=== PATIENT | female | born 1985 | race Caucasian/White ===

== ENCOUNTER 2016-11-16 15:19 | Inpatient (IN) ==
[2016-11-16] MEDS ORDERED: *HR* HYDROmorphone (PF) 1 MG/ML SYRINGE IVP ONE ×2 (15:58→17:37)
[2016-11-16] MEDS ORDERED: 0.9 % Sodium Chloride 1,000 ML IVC ONE (15:58)
[2016-11-16] MEDS ORDERED: Ondansetron 4 MG/2 ML VIAL IVP ONE (15:58)
[2016-11-16 16:02] LABS: Basophils % 0.2 %; Eosinophils % 0.1 %; Hematocrit 42.6 % (35.3-44.9); Hemoglobin 13.9 g/dL (11.5-15.4); Immature Granulocytes % 0.3 % (0-4); Immature Platelets 2.7 % (1.1-6.1); Lymphocytes # 2.6 K/mcL (0.6-4.6); Lymphocytes % 28.7 %; Mean Corpuscular HGB Conc 32.6 g/dL (31.6-35.5); Mean Corpuscular Hemoglobin 30.2 pg (28.0-33.3); Mean Corpuscular Volume 92.4 fL (83.0-100.0); Mean Platelet Volume 9.7 fL (9.4-12.4); Monocytes # 0.5 K/mcL (0.0-1.3); Monocytes % 5.2 %; Neutrophils # 5.8 K/mcL (1.6-8.9); Platelet Count 305 K/mcL (140-400); Red Blood Count 4.61 M/mcL (3.82-4.97); Red Cell Distribution Width 13.5 % (11.5-14.5); Segmented Neutrophils % 65.5 %
[2016-11-16 16:17] LABS: Alanine Aminotransferase 10 Units/L (0-55); Albumin 4.3 g/dL (3.5-5.0); Albumin/Globulin Ratio 1.3 (1.1-2.2); Alkaline Phosphatase 55 Units/L (38-126); Amylase 45 Units/L (25-125); Aspartate Amino Transferase 11 Units/L (5-34); BUN/Creatinine Ratio 10 (6-26); Bilirubin,Direct 0.2 mg/dL (0.0-0.5); Bilirubin,Indirect 0.3 mg/dL (0.0-1.2); Bilirubin,Total 0.5 mg/dL (0.2-1.2); Blood Urea Nitrogen 8 mg/dL (7-20); Calcium 9.7 mg/dL (8.6-10.8); Carbon Dioxide 24 mEq/L (19-29); Chloride 107 mEq/L (98-109); Globulin 3.2 g/dL (2.4-3.5); Glucose 93 mg/dL (70-99); Lipase 10 Units/L (8-78); Osmolality,Calculated 290 (280-300); Potassium 4.1 mEq/L (3.5-4.5); Sodium 141 mEq/L (136-145); Total Protein 7.5 g/dL (6.0-8.3); eGFR For African Americans > 60 (> 60); eGFR For Non-African Americans > 60 (> 60)
[2016-11-16 16:35] LABS: Bilirubin,Urine Negative (Negative); Blood,Urine Negative (Negative); Clarity,Urine Clear (Clear); Color,Urine Yellow (Yellow); Glucose,Urine (UA) Normal (Normal); Ketones,Urine Trace mg/dL (Negative); Leukocyte Esterase,Urine Negative (Negative); Nitrite,Urine Negative (Negative); PH,Urine 7.5 pH Units (5.0-8.0); Protein,Urine Trace mg/dL (Neg-Trace); Specific Gravity,Urine 1.029 (1.010-1.025); Urobilinogen,Urine Normal (Normal)
[2016-11-16 16:38] LABS: Bacteria,Urine Few per hpf (None-Few); Hyaline Casts,Urine None Seen per lpf (None-Few); RBC,Urine 0-3 per hpf (0-3); Squamous Epithelial Cell,Urine Many per lpf (None-Few)
[2016-11-16] MEDS ORDERED: Vancomycin Oral Soln 250 MG/2.5 ML UDC PO STA (18:39)
[2016-11-16] MEDS ORDERED: *HR* LORazepam 2 MG/ML VIAL IVP ONE (18:43)
[2016-11-16] MEDS ORDERED: MetroNIDAZOLE 500 MG/100 ML 500 MG/100 ML BAG IVPB ONE (18:45)
--- NOTE | 2016-11-16 18:46 | Emergency Department Note ---
Disposition Clinical Impression: C. difficile diarrhea Disposition: Admitted As Inpatient Referrals: NONE,PCP [Primary Care Provider] - Forms: Work/School Release, ED Satisfaction Letter Abdominal Pain HPI - General Chief Complaint: ED Abdominal Pain Stated Complaint: ABD PAIN Time Seen by Provider: 11/16/16 15:21 Source: patient Mode of arrival: ambulatory Limitations: no limitations Nursing Notes Reviewed: Yes Vital Signs Reviewed: Yes - History of Present Illness Pt Subjective Complaint: abdominal pain Onset (ago): day(s) (5) Consistency: constant Location: diffuse Quality: cramping, stabbing Improves with: nothing Worsens with: nothing Context: history of similar episodes (She was diagnosed C. difficile toxin be on November 14 at [facility] she was unable to get outpatient vancomycin was referred here by [facility] for inpatient status) Associated symptoms: Reports: nausea, vomiting, diarrhea Treatments prior to arrival: none - Related Data Home Medications Medication Instructions Recorded Confirmed Hyoscyamine SL [Levsin Sl] 0.125 mg SL QID 10/29/15 02/15/16 Ondansetron HCl [Zofran] 8 mg PO 3-4XD PRN 10/29/15 02/15/16 Amoxicillin [Amoxil] 500 mg PO BID 02/15/16 02/15/16 Hydrocodone/Acetaminophen [Gibson 1 - 2 each PO Q4-6H PRN 02/15/16 02/15/16 10-325 Tablet] SUMAtriptan succinate [Imitrex] 50 mg PO Q2H PRN 02/15/16 02/15/16 Previous Rx's Medication Instructions Recorded Buspirone HCl [Buspar] 15 mg PO TID #90 tablet 02/19/16 Doxepin [Sinequan] 50 mg PO HS #60 capsule 02/19/16 FLUoxetine HCl [Sarafem] 20 mg PO BID #60 tablet 02/19/16 diazePAM [Valium] 2 mg PO QID PRN #60 tablet 02/19/16 Allergies Allergy/AdvReac Type Severity Reaction Status Date / Time promethazine [From Phenergan] AdvReac Gastrointestinal Verified 10/29/15 12:22 Upset All systems ED: reviewed and negative except as stated. Constitutional: Denies: fever, chills Gastrointestinal: Reports: abdominal pain, nausea, vomiting. Denies: hematemesis, melena, hematochezia Abdominal Pain PMH - Past Medical History Medical history: Reports: fibromyalgia, migraine, other Female Surgical History: Reports: cholecystectomy Psychiatric history: Reports: anxiety, depression, PTSD - Social History Smoking status: Current every day smoker Alcohol use: Reports: rarely Drug use: Reports: marijuana Physical Exam - General Limitations: no limitations General appearance: alert, other (H in obvious pain) - Head Head exam: atraumatic, normocephalic, normal inspection - Eye Eye exam: Present: normal appearance, PERRL, EOMI - Expanded Eye Exam Pupils: Left: reactive - ENT ENT exam: normal exam, normal oropharynx, mucous membranes moist - Expanded ENT Exam External ear exam: Present: normal external inspection Mouth exam: Present: normal external inspection Teeth exam: Present: normal inspection Throat exam: Present: normal inspection - Neck Neck exam: Present: normal inspection, full ROM, trachea midline - Chest Chest inspection: Present: normal inspection, symmetric chest wall rise - Respiratory Respiratory exam: Present: normal lung sounds bilaterally - Cardiovascular Cardiovascular exam: Present: regular rate, normal rhythm, normal heart sounds - Abdominal Exam Abdominal exam: Present: soft, normal bowel sounds. Absent: distention, guarding, rebound, rigidity Abdominal tenderness: Present: diffuse, moderate - Extremities Exam Extremities exam: Present: normal inspection, full ROM. Absent: tenderness, pedal edema - Expanded Upper Extremity Exam Shoulder exam: Present: normal inspection, full ROM Arm exam: Present: normal inspection, full ROM Elbow exam: Present: normal inspection, full ROM Forearm/Wrist exam: Present: normal inspection, full ROM Hand exam: Present: normal inspection, full ROM Vascular exam: Normal: capillary refill, radial pulse - Expanded Lower Extremity Exam Hip/Pelvis exam: Present: normal inspection, full ROM Upper leg exam: Present: normal inspection, full ROM Knee exam: Present: normal inspection, full ROM Lower leg exam: Present: normal inspection, full ROM Ankle exam: Present: normal inspection, full ROM Foot/toe exam: Present: normal inspection, full ROM Neurovascular/Tendon exam: Absent: motor deficit, sensory deficit, tendon deficit - Back Exam Back exam: Present: normal inspection, full ROM. Absent: tenderness - Neurological Exam Neurological exam: Present: alert, oriented X3 - Expanded Neurological Exam Patient oriented to: Present: person, place, time Coma Scale Eye Opening: Spontaneous Coma Scale Motor Response: Obeys Commands Coma Scale Verbal Response: Oriented Coma Scale Total: 15 - Psychiatric Psychiatric exam: Present: normal affect, normal mood - Skin Skin exam: Present: warm, dry, intact, normal color Course Vital Signs Temperature 97.4 F L 11/16/16 15:27 Pulse Rate 93 11/16/16 15:27 Respiratory Rate 16 11/16/16 15:27 Blood Pressure 136/97 11/16/16 15:27 O2 Sat by Pulse Oximetry 100 11/16/16 15:27 Temperature 97.4 F L 11/16/16 15:27 Pulse Rate 71 11/16/16 17:14 Respiratory Rate 18 11/16/16 17:14 Blood Pressure 118/75 11/16/16 17:14 O2 Sat by Pulse Oximetry 97 11/16/16 17:14 Oxygen Delivery Oxygen Delivery Room Air Abdominal Pain - Lab Data Result diagrams: 11/16/16 15:48 11/16/16 15:48 Lab Results 11/16/16 11/16/16 11/16/16 Range/Units 15:48 15:48 15:48 WBC 8.9 (4.3-11.1) K/mcL RBC 4.61 (3.82-4.97) M/mcL Hgb 13.9 (11.5-15.4) g/dL Hct 42.6 (35.3-44.9) % MCV 92.4 (83.0-100.0) fL MCH 30.2 (28.0-33.3) pg MCHC 32.6 (31.6-35.5) g/dL RDW 13.5 (11.5-14.5) % Plt Count 305 (140-400) K/mcL MPV 9.7 (9.4-12.4) fL Immature Gran % 0.3 (0-4) % Seg Neutrophils % 65.5 % Lymphocytes % 28.7 % Monocytes % 5.2 % Eosinophils % 0.1 % Basophils % 0.2 % Neutrophils # 5.8 (1.6-8.9) K/mcL Lymphocytes # 2.6 (0.6-4.6) K/mcL Monocytes # 0.5 (0.0-1.3) K/mcL Eosinophils # 0.0 (0.0-0.6) K/mcL Basophils # 0.0 (0.0-0.2) K/mcL Immature Plt Fraction 2.7 (1.1-6.1) % Sodium 141 (136-145) mEq/L Potassium 4.1 (3.5-4.5) mEq/L Chloride 107 (98-109) mEq/L Carbon Dioxide 24 (19-29) mEq/L BUN 8 (7-20) mg/dL Creatinine 0.84 (0.57-1.11) mg/dL Est GFR ( Amer) > 60 (> 60) Est GFR (Non-Af Amer) > 60 (> 60) BUN/Creatinine Ratio 10 (6-26) Glucose 93 (70-99) mg/dL Calculated Osmolality 290 (280-300) Calcium 9.7 (8.6-10.8) mg/dL Total Bilirubin 0.5 (0.2-1.2) mg/dL Direct Bilirubin 0.2 (0.0-0.5) mg/dL Indirect Bilirubin 0.3 (0.0-1.2) mg/dL AST 11 (5-34) Units/L ALT 10 (0-55) Units/L Alkaline Phosphatase 55 (38-126) Units/L Serum Total Protein 7.5 (6.0-8.3) g/dL Albumin 4.3 (3.5-5.0) g/dL Globulin 3.2 (2.4-3.5) g/dL Albumin/Globulin Ratio 1.3 (1.1-2.2) Amylase 45 (25-125) Units/L Lipase 10 (8-78) Units/L Serum , Qual Negative (Negative) Urine Color (Yellow) Urine Clarity (Clear) Urine pH (5.0-8.0) pH Units Ur Specific [place] (1.010-1.025) Urine Protein (Neg-Trace) mg/dL Urine Glucose (UA) (Normal) mg/dL Urine Ketones (Negative) mg/dL Urine Blood (Negative) Urine Nitrite (Negative) Urine Bilirubin (Negative) Urine Urobilinogen (Normal) mg/dL Ur Leukocyte Esterase (Negative) Urine Microscopic RBC (0-3) per hpf Urine Microscopic WBC (0-3) per hpf Ur Squamous Epith Cells (None-Few) per lpf Urine Bacteria (None-Few) per hpf Hyaline Casts (None-Few) per lpf Ur Culture Indicated? (NO) 08/28/17 Range/Units 16:16 WBC (4.3-11.1) K/mcL RBC (3.82-4.97) M/mcL Hgb (11.5-15.4) g/dL Hct (35.3-44.9) % MCV (83.0-100.0) fL MCH (28.0-33.3) pg MCHC (31.6-35.5) g/dL RDW (11.5-14.5) % Plt Count (140-400) K/mcL MPV (9.4-12.4) fL Immature Gran % (0-4) % Seg Neutrophils % % Lymphocytes % % Monocytes % % Eosinophils % % Basophils % % Neutrophils # (1.6-8.9) K/mcL Lymphocytes # (0.6-4.6) K/mcL Monocytes # (0.0-1.3) K/mcL Eosinophils # (0.0-0.6) K/mcL Basophils # (0.0-0.2) K/mcL Immature Plt Fraction (1.1-6.1) % Sodium (136-145) mEq/L Potassium (3.5-4.5) mEq/L Chloride (98-109) mEq/L Carbon Dioxide (19-29) mEq/L BUN (7-20) mg/dL Creatinine (0.57-1.11) mg/dL Est GFR ( Amer) (> 60) Est GFR (Non-Af Amer) (> 60) BUN/Creatinine Ratio (6-26) Glucose (70-99) mg/dL Calculated Osmolality (280-300) Calcium (8.6-10.8) mg/dL Total Bilirubin (0.2-1.2) mg/dL Direct Bilirubin (0.0-0.5) mg/dL Indirect Bilirubin (0.0-1.2) mg/dL AST (5-34) Units/L ALT (0-55) Units/L Alkaline Phosphatase (38-126) Units/L Serum Total Protein (6.0-8.3) g/dL Albumin (3.5-5.0) g/dL Globulin (2.4-3.5) g/dL Albumin/Globulin Ratio (1.1-2.2) Amylase (25-125) Units/L Lipase (8-78) Units/L Serum , Qual (Negative) Urine Color Yellow (Yellow) Urine Clarity Clear (Clear) Urine pH 7.5 (5.0-8.0) pH Units Ur Specific [place] 1.029 H (1.010-1.025) Urine Protein Trace (Neg-Trace) mg/dL Urine Glucose (UA) Normal (Normal) mg/dL Urine Ketones Trace H (Negative) mg/dL Urine Blood Negative (Negative) Urine Nitrite Negative (Negative) Urine Bilirubin Negative (Negative) Urine Urobilinogen Normal (Normal) mg/dL Ur Leukocyte Esterase Negative (Negative) Urine Microscopic RBC 0-3 (0-3) per hpf Urine Microscopic WBC 5-15 H (0-3) per hpf Ur Squamous Epith Cells Many H (None-Few) per lpf Urine Bacteria Few (None-Few) per hpf Hyaline Casts None Seen (None-Few) per lpf Ur Culture Indicated? YES A (NO)
[2016-11-16] MEDS ORDERED: Naloxone 0.4 MG/ML INJ IVP PRN (20:54)
--- NOTE | 2016-11-16 20:54 | Internal Med History&Physical ---
<Harrison Bucio - Last Filed: 11/16/16 22:20> Date of Encounter: 11/16/16 Time of Encounter: 20:30 Assessment and Plan (1) C. difficile diarrhea Current visit: Yes Status: Acute Patient had also C. difficile test on 11/14/16 at [facility]. She denies having received any antibiotics prior or following this diagnosis. Is unclear at the moment what caused this current episode of C. difficile, but will treat with IV Flagyl, by mouth vancomycin, and symptomatically for nausea and vomiting control. We will not give a medication for diarrhea due to patient current C. difficile infection. IV Flagyl 500 mg every 8 hours By mouth vancomycin 125 mg 4 times a day Nausea controlled with IV Zofran and Reglan Normal saline at 75 mL an hour due to patient difficulty with eating and drinking (due to nausea) (2) Abdominal pain Current visit: Yes Status: Acute Patient reports severe, 9/10, in severity abdominal pain beginning left lower quadrant and radiating around to her back. Lipase is normal, CT abdomen and pelvis without contrast did not show any obvious abnormalities, though is limited due to lack of IV contrast, test was normal. Doubt C. difficile is causing her severe abdominal pain, given patient history of IBS, and previous s. cervesciae positive lab results I suspect there might be underlying inflammatory bowel disease. Colonoscopy performed in 11/04 was limited due to inadequate bowel preparation. We will consult gastroenterology due to concern for IBD and possible need for colonoscopy Pain control with IV Dilaudid, [place], or ibuprofen depending on severity Rest of plan as above Qualifiers: Abdominal location: left lower quadrant Qualified Code(s): R10.32 - Left lower quadrant pain (3) Anxiety Current visit: No Status: Acute Patient has history of psychiatric disorder. She is on number of psychiatric medications as well as Klonopin. It is unclear how much her current anxiety might be affecting her presentation, pain, or nausea. We will attempt to control her anxiety in order to see how much discomfort is present. Continue home psychiatric medications IV Ativan every 8 hours when necessary (4) Depression, major, recurrent, moderate Current visit: No Status: Acute Plan as above (5) DVT prophylaxis Current visit: Yes Status: Acute 40 mg Lovenox daily Internal Medicine - H&P: HPI Chief complaint: Abdominal pain and diarrhea Admitted From: Home Plans for Post Hospital Care: Home History of present illness: Ms. Castillo is a 31 year old female who presents to [facility] with significant abdominal pain nausea, vomiting, and diarrhea. She has a past medical history of depression, anxiety, and IBS-D. She reports this is been ongoing for about 3 months. She presented to the hospital 3 months ago with descriptions similar to her having Giardia (she has had in the past). She got a short course of Flagyl at that time. Unfortunately, her abdominal pain and diarrhea did not improve in that time. She was scheduled to see Dr. Ann on 11/24/16 for her ongoing abdominal symptoms, but her abdominal pain, diarrhea, and nausea were too severe she came to the hospital. 2 days ago she presented to [facility] with similar complaints, and she was found to have C. difficile toxin in her stool. She denies having been on antibiotic except for 3 months ago. She reports that her severe abdominal pain begins in the left lower quadrant and wraps around her back in a sharp, stabbing pain. When I examined her she reports the pain was 9/10 in severity was only made better by change position and worse by eating or contact. She states the pain is similar to her previous episodes of cholecystitis (though she had a cholecystectomy prior). She has not observed any unusual bruising or rashes on her abdomen or otherwise. She states her nausea and pain has been so severe that she has wanted to eat and will often go 3-4 days between eating. She reports having a 30 pound weight loss the last 3 months because of this. Through this entire time she is continuing to have diarrhea with a fecal antigen for C. difficile positive on at [facility]. She denies any hematochezia or hematemesis. Past Med Surg Social Fam HX - Past Medical History Medical history: fibromyalgia, migraine, other Psychiatric history: anxiety, depression, PTSD - Past Surgical History Surgical History: cholecystectomy - Social History Smoking Status: Current every day smoker Smokeless Tobacco Status: No Alcohol use: rarely Drug use: marijuana - Family History Mother Adopted: No Family Member Ethnicity: Non- Living Status: Still Living Hx Family Cardiac Disorders: Yes Hx Family Respiratory Disorders: No Hx Family Cancer: No Hx Family GI Disorders: No Hx Family Endocrine Disorder: No Hx Family Neuromuscular Disorders: No Hx Family Neurologic Disorders: No Hx Family HEENT Disorders: No Internal Medicine - H&P: Meds Hyoscyamine SL [Levsin Sl] 0.125 mg SL Q4H PRN 10/29/15 [History] SUMAtriptan succinate [Imitrex] 50 mg PO Q2H PRN MDD 100 mg 02/15/16 [History] Buspirone HCl [Buspar] 30 mg PO BID 11/16/16 [History] Doxepin HCl 100 mg PO HS 11/16/16 [History] HydrOXYzine Pamoate [Vistaril] 50 mg PO QID PRN 11/16/16 [History] Ondansetron ODT [Zofran ODT] 4 - 8 mg PO Q4-6H PRN 11/16/16 [History] Vortioxetine Hydrobromide [Trintellix] 10 mg PO DAILY 11/16/16 [History] clonazePAM [Klonopin] 0.5 mg PO DAILY PRN 11/16/16 [History] 3 Allergy/AdvReac Type Severity Reaction Status Date / Time promethazine [From Phenergan] AdvReac Gastrointestinal Verified 10/29/15 12:22 Upset Review of systems: Gen: Reports fevers and chills, reports 30 lb weight loss in 3 month, reports decreased PO intake, denies weakness, denies fatigue, reports diaphoresis CV: Reports mild chest pain, denies palpitations Resp: Reports chronic shortness of breath (from smoking), reports coughing productive of morales phlegm GI: reports nausea and vomiting, reports severe abdominal pain, denies constipation, reports diarrhea, denies hematochezia, denies melena Neuro: Denies headache, denies confusion, denies focal weakness, denies numbness , denies tingling, denies vision changes, reports dizziness Skin: Denies bruising, denies rash : Denies flank pain, denies dysuria, denies hematuria - Constitutional Vitals: Temp Pulse Resp BP Pulse Ox 97.4 F L 77 18 114/86 97 11/16/16 15:27 11/16/16 18:59 11/16/16 19:07 11/16/16 19:07 11/16/16 18:59 Exam: General: Cooperative, pleasant, significant abdominal pain, controlled in ball on bed, alert and oriented 3, answers questions appropriately HEENT: Normocephalic, atraumatic, neck supple, trachea midline, Conjunctiva pink , sclera anicteric, oral mucosa moist, no orophargeal erythema or exudates Respiratory: No accessory muscle usage, clear to auscultation bilaterally, no wheezes/rhonchi/rales appreciated Cardiovascular: Regular rate and rhythm, S1 and S2 present, no murmurs/rubs/ gallops/clicks appreciated GI/abdominal: Nondistended, exquisite tenderness in left lower and left upper quadrants, no rebound, soft, normal bowel sounds, no peritoneal signs Extremities: No calf tenderness, noncyanotic, no pedal edema appreciated, warm Neurological: Alert and oriented 3, no facial droop, no focal deficits Skin: Slightly clammy, intact, normal color Internal Med - H&P Results - Labs CBC & Chem 7: 11/16/16 15:48 11/16/16 15:48 <Ana M Palacios - Last Filed: 11/16/16 23:25> Date of Encounter: 11/16/16 Internal Medicine - H&P: HPI History of present illness: Ms. Castillo is a 31 year old female All Systems PM: A 10-system review of systems was performed and is negative for pertinent findings except as documented above in the HPI. - Constitutional Vitals: Temp Pulse Resp BP Pulse Ox 97.9 F 70 17 138/72 96 11/16/16 19:50 11/16/16 19:50 11/16/16 19:50 11/16/16 19:50 11/16/16 19:50 Internal Med - H&P Results - Labs CBC & Chem 7: 11/16/16 15:48 11/16/16 15:48 Labs: Cardiac Enzymes 11/16/16 Range/Units 21:45 Troponin I 0.01 (0-0.03) ng/mL - Attending Attestation I have seen and examined pt independently. I have discussed with Resident Dr. Bucio regarding the management plan. I have reviewed and agree with the documentation. Pt has severe abd pain, n/v and diarrhea for 2 and half months. Recently was found C Diff positive. Hx of IBS-D. Will cont po vanco and iv flagyl for C Diff. Symptomatic treatment for Abd pain and N/V. C Diff colitis seems not explain the symptoms. Suspect underlying bowel disease, will consult GI. Keep pt npo and give IVF now.
[2016-11-16] MEDS ORDERED: Ibuprofen 400 MG TABLET PO PRN (21:00)
[2016-11-16] MEDS ORDERED: *HR* HYDROmorphone (PF) 1 MG/ML SYRINGE IVP PRN ×2 (21:00→22:39)
[2016-11-16] MEDS ORDERED: hydrOXYzine pamoate 25 MG CAPSULE PO PRN (21:12)
[2016-11-16] MEDS ORDERED: Hyoscyamine SL 0.125 MG TAB.SUBL SL PRN (21:12)
[2016-11-16] MEDS ORDERED: SUMAtriptan succinate 50 MG TABLET PO PRN (21:12)
[2016-11-16] MEDS ORDERED: clonazePAM 0.5 MG TABLET PO PRN (21:12)
[2016-11-16] MEDS: Ondansetron 4 MG/2 ML VIAL IVP PRN (21:17)
[2016-11-16] MEDS ORDERED: *HR* LORazepam 2 MG/ML VIAL IVP PRN (21:32)
[2016-11-16] MEDS: 0.9 % Sodium Chloride 1,000 ML IVC SCH (22:00)
[2016-11-16] MEDS: *HR* HYDROcodone/Acet 5/325 mg TABLET PO PRN (22:50)
[2016-11-17] MEDS ORDERED: Nicotine 7 MG PATCH.TD24 TD ONE (00:31)
[2016-11-17] MEDS ORDERED: *HR* LORazepam 2 MG/ML VIAL IVP ONE (00:31)
[2016-11-17] MEDS ORDERED: Vancomycin Oral Soln 250 MG/2.5 ML UDC PO SCH (03:00)
[2016-11-17] MEDS ORDERED: MetroNIDAZOLE 500 MG/100 ML 500 MG/100 ML BAG IVPB SCH (03:00)
[2016-11-17] MEDS: *HR* HYDROmorphone (PF) 1 MG/ML SYRINGE IVP PRN ×7 (03:27→22:56)
[2016-11-17] MEDS: *HR* HYDROcodone/Acet 5/325 mg TABLET PO PRN ×3 (04:53→16:02)
[2016-11-17] MEDS: Ondansetron 4 MG/2 ML VIAL IVP PRN ×4 (05:34→17:59)
[2016-11-17 05:46] LABS: BUN/Creatinine Ratio 11 (6-26); Blood Urea Nitrogen 9 mg/dL (7-20); Calcium 8.9 mg/dL (8.6-10.8); Carbon Dioxide 25 mEq/L (19-29); Chloride 107 mEq/L (98-109); Glucose 93 mg/dL (70-99); Magnesium 1.9 mg/dL (1.6-2.6); Osmolality,Calculated 288 (280-300); Phosphorous 3.7 mg/dL (2.3-4.7); Potassium 3.4 mEq/L (3.5-4.5); Sodium 140 mEq/L (136-145); eGFR For African Americans > 60 (> 60); eGFR For Non-African Americans > 60 (> 60)
[2016-11-17] MEDS: Metoclopramide 10 MG/2 ML VIAL IVP SCH ×5 (06:27→22:54)
[2016-11-17] MEDS: *HR* Enoxaparin 40 MG/0.4 ML SYRINGE SQ SCH ×2 (06:27→09:45)
[2016-11-17] MEDS: Pantoprazole 40 MG VIAL IVP SCH (06:27)
[2016-11-17] MEDS: clonazePAM 0.5 MG TABLET PO PRN ×3 (06:58→16:03)
--- NOTE | 2016-11-17 09:11 | Gastroenterology Consult Note ---
<Rossy Hylton - Last Filed: 11/17/16 13:50> Date of Encounter: 11/17/16 Time of Encounter: 11:25 - Assessment and plan (1) Abdominal pain Status: Chronic Assessment and plan: r/o IBD - repeat Cscope with TI evaluation/biopsy once Cdiff resolved. Check fecal calpro. Negative CT scan. Consider use of antispasmodic such as dicyclomine or hyoscamine. Qualifiers: Abdominal location: left lower quadrant Qualified Code(s): R10.32 - Left lower quadrant pain (2) C. difficile diarrhea Status: Acute Assessment and plan: po vanco - retest at end of therapy to confirm eradication - f/u in GI clinic with Dr. Ann/Constantine. - Time Spent With Patient Total time spent is greater than 50% in coordination of care (as documented) at patient's floor/unit and/or counseling patient: less than 15 minutes GI History of Present Illness - Data of Consult Patient: known to practice within the last 3 years Consult date: 11/17/16 Requesting Physician: Matias Colon MD - Consult Narrative Reason for consult: c diff, diarrhea, + ASCA History of present illness: Ms. Castillo is a 31 year old female who presents to [facility] with significant abdominal pain nausea, vomiting, and diarrhea. She has a past medical history of depression, anxiety, and IBS-D. She reports this is been ongoing for about 3 months. She presented to the hospital 3 months ago with descriptions similar to her having Giardia (she has had in the past). She got a short course of Flagyl at that time. Unfortunately, her abdominal pain and diarrhea did not improve in that time. She was scheduled to see Dr. Ann on 11/24/16 for her ongoing abdominal symptoms, but her abdominal pain, diarrhea, and nausea were too severe she came to the hospital. 2 days ago she presented to [facility] with similar complaints, and she was found to have C. difficile toxin in her stool. She denies having been on antibiotic except for 3 months ago. She reports that her severe abdominal pain begins in the left lower quadrant and wraps around her back in a sharp, stabbing pain. When I examined her she reports the pain was 9/10 in severity was only made better by change position and worse by eating or contact. She states the pain is similar to her previous episodes of cholecystitis (though she had a cholecystectomy prior). She has not observed any unusual bruising or rashes on her abdomen or otherwise. She states her nausea and pain has been so severe that she has wanted to eat and will often go 3-4 days between eating. She reports having a 30 pound weight loss the last 3 months because of this. Through this entire time she is continuing to have diarrhea with a fecal antigen for C. difficile positive on 11/14/16 at [facility]. She denies any hematochezia or hematemesis. Patient underwent EGD/Colon 10/[address] Elias, she was unable to transverse the TI due to stool in the colon. Random biopsies showed mild chronic inflammation ( nonspecific). Patient never complete stool w/u including a fecal calpro, however , her ASCA was positive (ANCA negative). EGD showed Barretts esophagus. She did see Dr. Bobby on 2 occasions, was placed on Viberzi for IBS-D, narcotics for pain control and referred to pain management for further complaints. Patient appears to have a history of pain medication use and was not able to be referred to pain management based on her history of using medications not prescribed for her in the past. Colonoscopy: 10/2015 - [facility] - mild chronic inflammation thruout EGD: 10/2015 - [facility] - Barretts, esophagitis, gastritis Past Med Surg Social Fam HX - Past Medical History Medical history: fibromyalgia, migraine Psychiatric history: anxiety, depression, PTSD - Past Surgical History Surgical History: cholecystectomy - Social History Smoking Status: Current every day smoker Packs per day: 1 Smokeless Tobacco Status: No Alcohol use: none, rarely Drug use: marijuana - Family History Father Living Status: Still Living Hx Family GI Disorders: Yes (Diverticulitis) Hx Family Genitourinary Disorders: Yes (End stage renal failure) Hx Family Endocrine Disorder: Yes (DM) Mother Adopted: No Family Member Ethnicity: Non- Living Status: Still Living Hx Family Cardiac Disorders: Yes (open heart surgery) Hx Family Respiratory Disorders: No Hx Family Cancer: No Hx Family GI Disorders: No Hx Family Endocrine Disorder: No Hx Family Neuromuscular Disorders: No Hx Family Neurologic Disorders: No Hx Family HEENT Disorders: No - Gastrointestinal NSAID use: None noted Anticoagulation Use: None noted Number of BM Per Day: up to 10x Gastrointestinal: Present: abdominal pain, diarrhea - Constitutional Constitutional: anorexia, weight loss - EENT Eyes: as per HPI Ears: Present: as per HPI Nose, mouth and throat: Present: as per HPI - Cardiovascular Cardiovascular ROS: Present: as per HPI - Respiratory Respiratory IM: Present: as per HPI - Neurological ROS Neurological GI: Present: as per HPI - Hematologic/Lymphatic Hematologic/Lymphatic pediatric: Present: as per HPI - Musculoskeletal Musculoskeletal ROS GI: Present: as per HPI - Integumentary Integumentary GI: Present: as per HPI - Psychiatric ROS Psychiatric GI: Present: anxiety - Endocrine Endocrine IM: Present: other - Constitutional Vitals: Temp Pulse Resp BP Pulse Ox 98.0 F 75 15 107/57 95 11/17/16 06:40 11/17/16 06:40 11/17/16 06:40 11/17/16 06:40 11/17/16 06:40 General appearance: Present: cooperative, A&O X 3, no acute distress, answers questions appropriately - Head Head exam: Present: atraumatic, normocephalic - Eye Eye exam: Present: normal appearance, sclera anicteric - ENT ENT exam: Present: mucous membranes moist - Neck Neck exam general surgery: Present: normal inspection, trachea midline - Respiratory Respiratory exam: Present: CTAB - Cardiovascular Cardiovascular exam: Present: RRR, +S1, +S2 - GI/Abdominal GI/Abdominal exam: Present: soft, tenderness, no peritoneal signs - Rectal Rectal exam: Present: deferred - Extremities Exam Extremities exam: Present: warm - Neurological Exam Neurological exam: Present: no focal deficits - Psychiatric Psychiatric exam: Present: anxious - Skin Skin exam: Present: dry, intact, normal color, warm Results - Labs CBC & Chem 7: 11/16/16 15:48 11/17/16 05:05 Labs: Last Result Calcium 8.9 mg/dL (8.6-10.8) 11/17/16 05:05 Troponin I 0.01 ng/mL (0-0.03) 11/16/16 21:45 Entire Visit Hgb 13.9 g/dL (11.5-15.4) 11/16/16 15:48 Hct 42.6 % (35.3-44.9) 11/16/16 15:48 Total Bilirubin 0.5 mg/dL (0.2-1.2) 11/16/16 15:48 AST 11 Units/L (5-34) 11/16/16 15:48 ALT 10 Units/L (0-55) 11/16/16 15:48 Amylase 45 Units/L (25-125) 11/16/16 15:48 Lipase 10 Units/L (8-78) 11/16/16 15:48 Consult Discharge Plan - Plan Instructions: Mood Disorders (DC), Clostridium Difficile Infection (DC), Anemia (GEN), Anxiety (DC) Additional Instructions: dc klonopin start xanax 0.5 mg tid Referrals: Shoshana Faulkner, SANITATION DIRECTOR [Advanced Practice Nurse] - Titus Choi DO [Resident] - 12/15/16 9:00 am (They will send new paitent packet in mail, in that packet there will be a health questionaire for you to fill out and bring with you. 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.) NONE,PCP [Primary Care Provider] - José Miguel Ann MD [Partnered Physician] - 12/15/16 3:00 pm (2 weeks follow up ) Prescriptions: HYDROcodone/Acet 5/325 mg [[place] 5-325 mg] 2 tab PO Q6HR PRN #10 tab PRN Reason: Pain ALPRAZolam [Xanax 0.5 MG Tablet] 0.5 mg PO TID PRN #10 tab PRN Reason: Anxiety Hyoscyamine SL [Levsin Sl] 0.125 mg SL Q4H PRN #20 PRN Reason: Cramping Lactobacillus [Culturelle] 2 each PO DAILY #7 metroNIDAZOLE [Flagyl] 500 mg PO TID 10 Days Ondansetron ODT [Zofran ODT] 4 - 8 mg PO Q4-6H PRN #14 PRN Reason: Nausea Vancomycin Oral Soln [Vancocin] 125 mg PO QID 10 Days <Dipesh Fitch - Last Filed: 11/25/16 06:14> Date of Encounter: 11/17/16 Time of Encounter: 16:00 - Time Spent With Patient Total time spent is greater than 50% in coordination of care (as documented) at patient's floor/unit and/or counseling patient: GI History of Present Illness - Data of Consult Requesting Physician: Matias Colon MD - Consult Narrative History of present illness: Ms. Castillo is a 31 year old female - Constitutional Vitals: Temp Pulse Resp BP Pulse Ox 98.0 F 61 16 132/67 95 11/19/16 10:26 11/19/16 10:26 11/19/16 10:26 11/19/16 10:26 11/19/16 10:26 Results - Labs CBC & Chem 7: 11/19/16 05:33 11/18/16 05:38 Labs: Last Result ESR 4 mm/hr (0-15) 11/17/16 17:00 Calcium 8.5 mg/dL (8.6-10.8) L 11/18/16 05:38 Troponin I 0.01 ng/mL (0-0.03) 11/16/16 21:45 C-Reactive Protein 1 mg/L (Less than 5) 11/17/16 05:05 Entire Visit Hgb 11.3 g/dL (11.5-15.4) L 11/19/16 05:33 Hct 34.6 % (35.3-44.9) L 11/19/16 05:33 Total Bilirubin 1.0 mg/dL (0.2-1.2) D 11/18/16 05:38 AST 9 Units/L (5-34) 11/18/16 05:38 ALT 8 Units/L (0-55) 11/18/16 05:38 Amylase 45 Units/L (25-125) 11/16/16 15:48 Lipase 10 Units/L (8-78) 11/16/16 15:48 - Attending Attestation I personally interviewed and examined Ms. Castillo. She has positive C Difficile. Her examination revealed minimal abdominal tenderness. No suggestion of mesenteric ischemia. Recommend oral Flagyl as patient has not had a trial of any meds yet prior to admission.
[2016-11-17] MEDS ORDERED: Scopolamine Patch 1.5 MG PATCH.TD72 TD SCH (09:15)
[2016-11-17] MEDS: Nicotine 7 MG PATCH.TD24 TD SCH (09:29)
[2016-11-17] MEDS: Vortioxetine Hydrobromide [Trintellix] 10 MG PO SCH (10:32)
[2016-11-17 10:52] LABS: C-Reactive Protein 1 mg/L (Less than 5)
[2016-11-17] MEDS: Vancomycin Oral Soln 250 MG/2.5 ML UDC PO SCH ×3 (11:53→22:53)
[2016-11-17] MEDS: 0.9 % Sodium Chloride 1,000 ML IVC SCH (11:54)
[2016-11-17] MEDS: Lactobacillus 1 EACH CAP.SPRINK PO SCH (11:56)
--- NOTE | 2016-11-17 16:05 | Internal Med Progress Note ---
<Orlando Gibson - Last Filed: 11/17/16 16:07> Date of Encounter: 11/17/16 Time of Encounter: 08:30 - Assessment and plan (1) C. difficile diarrhea Current Visit: Yes Status: Acute Assessment and plan: 31 yo Female admitted with C. difficile diarrhea, diagnosed at [facility]. - No fever, Papa EC is normal, no neutrophil elevation or electrolyte dysfunctions or kidney injury - Patient complains of abdominal pain, nausea vomiting. Plan: - Continue metronidazole IV - Continue oral vancomycin 125 mg 4 times per day - Nausea control with Zofran and scopolamine patch - Continue current pain control regimen (2) Abdominal pain Current Visit: Yes Status: Chronic Assessment and plan: Patient presents with abdominal pain in the setting of C. difficile colitis. Review of patient's records demonstrates that the patient does have positive ASCA and there was concern for IBD. She states that she has a history of IBS- D. - Gastroenterology involved in the case, appreciate recommendations. Plan: - Continue treatment for C. difficile - Continue pain control Qualifiers: Abdominal location: left lower quadrant Qualified Code(s): R10.32 - Left lower quadrant pain (3) Anxiety Current Visit: No Status: Acute Assessment and plan: Patient very anxious and feels that her current medications are not helpful. -Psychiatry consult and appreciate their recommendations. (4) Depression, major, recurrent, moderate Current Visit: No Status: Acute Assessment and plan: Currently uncontrolled depression, psychiatry involved. (5) Personality disorder Current Visit: No Status: Acute Assessment and plan: Known history of personality disorder. (6) DVT prophylaxis Current Visit: Yes Status: Acute Assessment and plan: Subcutaneous Lovenox 40 mg daily - Subjective Interval history: This feeling 31-year-old female's been seen a diabetic patient bedside this morning. She is alert awake interactive and vomiting. She is very anxious and states that her nerves are on and and she is worried and scared about being in the hospital. She mentions that she has been vomiting for 2-3 months and that she does not feel well. She feels that her advocate is not at her bedside. She feels that she needs more pain medications to control her abdominal discomfort. She is directing her anger and frustration towards the medical staff and emphasizing that she is very anxious. She said that she has been vomiting all night and that is the antiemetic medications have been somewhat effective. She rates her current pain at a 9 out of 10 on severity. She said that she has not had bowel movements this evening which is an improvement from before. She denies any bloody, mucus, or runny stools. - Constitutional Vitals: Temp Pulse Resp BP Pulse Ox 97.7 F 61 16 101/64 95 11/17/16 14:40 11/17/16 14:40 11/17/16 14:40 11/17/16 14:40 11/17/16 14:40 Exam: General: Alert awake oriented interactive and appears very anxious and tearful HEENT: Normocephalic, atraumatic, pupils equal and reactive, nasal cavity patent and open oral mucosa moist, neck supple trachea midline no signs of lymphadenopathy Cardiac: Regular rate and rhythm positive S1-S2 no murmurs or gallops appreciated, radial and posterior tibial pulses 2+ Respiratory: Clear to auscultation all lung grande, thoracic cavity correlating with respiratory effort without abnormality. Abdominal exam: Abdomen is soft, mild tenderness to light palpation, positive bowel sounds, no signs of ecchymosis or erythema or fluid wave. Extremities: Symmetric bilateral, muscle strength 5 out of 5 upper and lower extremities, no erythema or edema Psych: Patient is very tearful, appears very anxious, alert and oriented 3, no signs of psychosis or hallucinations Internal Medicine: Result - Labs CBC & Chem 7: 11/16/16 15:48 11/17/16 05:05 Labs: BMP 11/17/16 05:05 Sodium 140 Potassium 3.4 L Chloride 107 Carbon Dioxide 25 BUN 9 Creatinine 0.82 Glucose 93 Calcium 8.9 Consult Discharge Plan - Plan Additional Instructions: dc klonopin start xanax 0.5 mg tid Referrals: NONE,PCP [Primary Care Provider] - <Pete-Walter Alegria - Last Filed: 11/17/16 17:07> Date of Encounter: 11/17/16 - Constitutional Vitals: Temp Pulse Resp BP Pulse Ox 97.7 F 61 16 101/64 95 11/17/16 14:40 11/17/16 14:40 11/17/16 14:40 11/17/16 14:40 11/17/16 14:40 Internal Medicine: Result - Labs CBC & Chem 7: 11/16/16 15:48 11/17/16 05:05 Labs: [facility] 11/17/16 05:05 Sodium 140 Potassium 3.4 L Chloride 107 Carbon Dioxide 25 BUN 9 Creatinine 0.82 Glucose 93 Calcium 8.9 - Attending Attestation I examined this patient and my medical decision-making was reviewed with the Resident Physician. I agree with the documented findings, disposition and treatment plan as described except to the extent set forth below. Patient admitted for C. difficile diarrhea. She does have a history of IBS and there is suspicion for IBD at this time. Gastroenterology has evaluated the patient. Patient also has depression and anxiety and personality disorder. Psychiatry has also evaluated the patient. By mouth vancomycin and Flagyl being continued. Patient complains of severe abdominal pain and is requesting a higher dose of Dilaudid. No other acute events or complaints. Heart rate 61 , blood pressure 101/64, O2 sat 95% on room air. Heart S1-S2 positive no murmurs or rubs. Abdomen soft, R quadrant tenderness. Extremities no edema.
--- NOTE | 2016-11-17 16:39 | Consult Note ---
Date of Encounter: 11/17/16 Time of Encounter: 16:36 History of Present Illness Requesting Physician: Matias Colon MD Reason for consult: sever anxiety in the setting of acute illness History of present illness: Ms. Castillo is a 31 year old female with severe anxiety and irritable bowel syndrome admitted to the hospital. Psychiatry consulted for severe anxiety in the setting of acute illness. On approach patient was sitting in bed in no acute distress with her mother and father at the bedside. Patient reports she has had a long history of anxiety and reports that she knows what works for her and she reports that she was admitted at one A and that was not helpful and then she went for follow-up treatment at home plan which she reports she was put on the medication of doxepin and Klonopin and BuSpar she reports these have been working well for her but reports that her anxiety is not controlled with the Klonopin and reports that she has had Xanax in the past which has worked very well for her and reports that this is what she needs. When patient was asked if she has used any other type of intake depressive medications for anxiety which is helpful for chronic anxiety patient Very defensive stating that "I have been on all of [place] soul none of those worked for me so do not even asked me if I should try any of those because I have tried them for long periods of time and multiple medications at one time". Discussed with patient how Xanax is only going to be a short-term control of her anxiety and she reported understanding this she reports Klonopin at the dosage at that it Right now is not helping her anxiety and is only making matters worse. Patient denied suicidal ideations or homicidal ideations patient denied depressive symptoms patient endorses anxiety symptoms patient denied manic or hypomanic symptoms patient denied psychotic symptoms. Discussed with mom and dad regarding Xanax use mama did feel that this has worked for patient in the past mom dad and patient denied a past history of substance use the patient. And patient as well as mom also denied the patient has ever overused her medication. Family psychiatric history mother has bipolar disorder and anxiety mother is stable on Prozac therefore this was discussed with patient to possibly try Prozac again and patient denied wanting to try this and stated that she rather not try any "of those medications". CC: Matias Colon MD Past Med Surg Social Fam HX - Past Medical History Medical history: fibromyalgia, migraine - Past Surgical History Surgical History: cholecystectomy - Social History Smoking Status: Current every day smoker Smokeless Tobacco Status: No Alcohol use: none, rarely Drug use: marijuana - Family History Father Living Status: Still Living Hx Family GI Disorders: Yes (Diverticulitis) Hx Family Genitourinary Disorders: Yes (End stage renal failure) Hx Family Endocrine Disorder: Yes (DM) Mother Adopted: No Family Member Ethnicity: Non- Living Status: Still Living Hx Family Cardiac Disorders: Yes (open heart surgery) Hx Family Respiratory Disorders: No Hx Family Cancer: No Hx Family GI Disorders: No Hx Family Endocrine Disorder: No Hx Family Neuromuscular Disorders: No Hx Family Neurologic Disorders: No Hx Family HEENT Disorders: No Medications & Allergies Hyoscyamine SL [Levsin Sl] 0.125 mg SL Q4H PRN 10/29/15 [History] SUMAtriptan succinate [Imitrex] 50 mg PO Q2H PRN MDD 100 mg 02/15/16 [History] Buspirone HCl [Buspar] 30 mg PO BID 11/16/16 [History] Doxepin HCl 100 mg PO HS 11/16/16 [History] HydrOXYzine Pamoate [Vistaril] 50 mg PO QID PRN 11/16/16 [History] Ondansetron ODT [Zofran ODT] 4 - 8 mg PO Q4-6H PRN 11/16/16 [History] Vortioxetine Hydrobromide [Trintellix] 10 mg PO DAILY 11/16/16 [History] clonazePAM [Klonopin] 0.5 mg PO DAILY PRN 11/16/16 [History] 3 Allergy/AdvReac Type Severity Reaction Status Date / Time promethazine [From Phenergan] AdvReac Gastrointestinal Verified 10/29/15 12:22 Upset Results - Vital Signs Vital signs: Temp Pulse Resp BP Pulse Ox 97.7 F 61 16 101/64 95 11/17/16 14:40 11/17/16 14:40 11/17/16 14:40 11/17/16 14:40 11/17/16 14:40 - Labs Labs: Laboratory Last Values WBC 8.9 K/mcL (4.3-11.1) 11/16/16 15:48 RBC 4.61 M/mcL (3.82-4.97) 11/16/16 15:48 Hgb 13.9 g/dL (11.5-15.4) 11/16/16 15:48 Hct 42.6 % (35.3-44.9) 11/16/16 15:48 MCV 92.4 fL (83.0-100.0) 11/16/16 15:48 MCH 30.2 pg (28.0-33.3) 11/16/16 15:48 MCHC 32.6 g/dL (31.6-35.5) 11/16/16 15:48 RDW 13.5 % (11.5-14.5) 11/16/16 15:48 Plt Count 305 K/mcL (140-400) 11/16/16 15:48 MPV 9.7 fL (9.4-12.4) 11/16/16 15:48 Immature Gran % 0.3 % (0-4) 11/16/16 15:48 Seg Neutrophils % 65.5 % 11/16/16 15:48 Lymphocytes % 28.7 % 11/16/16 15:48 Monocytes % 5.2 % 11/16/16 15:48 Eosinophils % 0.1 % 11/16/16 15:48 Basophils % 0.2 % 11/16/16 15:48 Neutrophils # 5.8 K/mcL (1.6-8.9) 11/16/16 15:48 Lymphocytes # 2.6 K/mcL (0.6-4.6) 11/16/16 15:48 Monocytes # 0.5 K/mcL (0.0-1.3) 11/16/16 15:48 Eosinophils # 0.0 K/mcL (0.0-0.6) 11/16/16 15:48 Basophils # 0.0 K/mcL (0.0-0.2) 11/16/16 15:48 Immature Plt Fraction 2.7 % (1.1-6.1) 11/16/16 15:48 ESR 10 mm/hr (0-15) 11/17/16 05:05 Sodium 140 mEq/L (136-145) 11/17/16 05:05 Potassium 3.4 mEq/L (3.5-4.5) L 11/17/16 05:05 Chloride 107 mEq/L (98-109) 11/17/16 05:05 Carbon Dioxide 25 mEq/L (19-29) 11/17/16 05:05 BUN 9 mg/dL (7-20) 11/17/16 05:05 Creatinine 0.82 mg/dL (0.57-1.11) 11/17/16 05:05 Est GFR ( Amer) > 60 (> 60) 11/17/16 05:05 Est GFR (Non-Af Amer) > 60 (> 60) 11/17/16 05:05 BUN/Creatinine Ratio 11 (6-26) 11/17/16 05:05 Glucose 93 mg/dL (70-99) 11/17/16 05:05 POC Glucose 99 (58-89) H 11/17/16 10:54 Calculated Osmolality 288 (280-300) 11/17/16 05:05 Calcium 8.9 mg/dL (8.6-10.8) 11/17/16 05:05 Phosphorus 3.7 mg/dL (2.3-4.7) 11/17/16 05:05 Magnesium 1.9 mg/dL (1.6-2.6) 11/17/16 05:05 Total Bilirubin 0.5 mg/dL (0.2-1.2) 11/16/16 15:48 Direct Bilirubin 0.2 mg/dL (0.0-0.5) 11/16/16 15:48 Indirect Bilirubin 0.3 mg/dL (0.0-1.2) 11/16/16 15:48 AST 11 Units/L (5-34) 11/16/16 15:48 ALT 10 Units/L (0-55) 11/16/16 15:48 Alkaline Phosphatase 55 Units/L (38-126) 11/16/16 15:48 Troponin I 0.01 ng/mL (0-0.03) 11/16/16 21:45 C-Reactive Protein 1 mg/L (Less than 5) 11/17/16 05:05 Serum Total Protein 7.5 g/dL (6.0-8.3) 11/16/16 15:48 Albumin 4.3 g/dL (3.5-5.0) 11/16/16 15:48 Globulin 3.2 g/dL (2.4-3.5) 11/16/16 15:48 Albumin/Globulin Ratio 1.3 (1.1-2.2) 11/16/16 15:48 Amylase 45 Units/L (25-125) 11/16/16 15:48 Lipase 10 Units/L (8-78) 11/16/16 15:48 Serum , Qual Negative (Negative) 11/16/16 15:48 Urine Color Yellow (Yellow) 11/16/16 16:16 Urine Clarity Clear (Clear) 11/16/16 16:16 Urine pH 7.5 pH Units (5.0-8.0) 11/16/16 16:16 Ur Specific [place] 1.029 (1.010-1.025) H 11/16/16 16:16 Urine Protein Trace mg/dL (Neg-Trace) 11/16/16 16:16 Urine Glucose (UA) Normal mg/dL (Normal) 11/16/16 16:16 Urine Ketones Trace mg/dL (Negative) H 11/16/16 16:16 Urine Blood Negative (Negative) 11/16/16 16:16 Urine Nitrite Negative (Negative) 11/16/16 16:16 Urine Bilirubin Negative (Negative) 11/16/16 16:16 Urine Urobilinogen Normal mg/dL (Normal) 11/16/16 16:16 Ur Leukocyte Esterase Negative (Negative) 11/16/16 16:16 Urine Microscopic RBC 0-3 per hpf (0-3) 11/16/16 16:16 Urine Microscopic WBC 5-15 per hpf (0-3) H 11/16/16 16:16 Ur Squamous Epith Cells Many per lpf (None-Few) H 11/16/16 16:16 Urine Bacteria Few per hpf (None-Few) 11/16/16 16:16 Hyaline Casts None Seen per lpf (None-Few) 11/16/16 16:16 Ur Culture Indicated? YES (NO) A 11/16/16 16:16 Consult Discharge Plan - Plan Additional Instructions: dc klonopin start xanax 0.5 mg tid Referrals: NONE,PCP [Primary Care Provider] -
--- NOTE | 2016-11-17 17:10 | Electrocardiograph Report ---
[address] [address] Test Date: 2016-11-17 Pat Name: Yaquelin [place] Department: 115 Room: 3A Gender: F Warranty Clerk: JONNY : 1985 Requested By: Matias Colon Order Number: [id number] Reading MD: Shoshana Miller Measurements Intervals Jones Rate: 67 P: 43 IN: 150 QRS: 39 QRSD: 91 T: 9 QT: 384 QTc: 400 Interpretive Statements SINUS RHYTHM Electronically Signed On 11-17-2016 17:08:56 EDT by Shoshana Miller
[2016-11-17] MEDS: ALPRAZolam 0.5 MG TABLET PO SCH ×2 (17:13→20:41)
[2016-11-17] MEDS: MetroNIDAZOLE 500 MG/100 ML 500 MG/100 ML BAG IVPB SCH (22:54)
[2016-11-18] MEDS: Ondansetron 4 MG/2 ML VIAL IVP PRN ×4 (00:06→20:08)
[2016-11-18] MEDS: *HR* HYDROcodone/Acet 5/325 mg TABLET PO PRN ×5 (00:06→21:30)
[2016-11-18] MEDS: 0.9 % Sodium Chloride 1,000 ML IVC SCH ×2 (00:07→14:38)
[2016-11-18 05:56] LABS: Basophils % 0.6 %; Eosinophils # 0.2 K/mcL (0.0-0.6); Eosinophils % 2.9 %; Immature Granulocytes % 0.2 % (0-4); Lymphocytes # 2.6 K/mcL (0.6-4.6); Lymphocytes % 51.1 %; Mean Corpuscular HGB Conc 32.4 g/dL (31.6-35.5); Mean Corpuscular Hemoglobin 30.7 pg (28.0-33.3); Mean Corpuscular Volume 94.6 fL (83.0-100.0); Monocytes # 0.4 K/mcL (0.0-1.3); Monocytes % 8.2 %; Neutrophils # 1.9 K/mcL (1.6-8.9); Platelet Count 203 K/mcL (140-400); Red Blood Count 3.49 M/mcL (3.82-4.97); Red Cell Distribution Width 13.1 % (11.5-14.5)
[2016-11-18 06:05] LABS: Hemoglobin 10.7 g/dL (11.5-15.4)
[2016-11-18] MEDS: Metoclopramide 10 MG/2 ML VIAL IVP SCH ×4 (06:07→23:46)
[2016-11-18] MEDS: *HR* HYDROmorphone (PF) 1 MG/ML SYRINGE IVP PRN ×7 (06:07→23:46)
[2016-11-18] MEDS: Pantoprazole 40 MG VIAL IVP SCH (06:07)
[2016-11-18 06:11] LABS: Alanine Aminotransferase 8 Units/L (0-55); Albumin/Globulin Ratio 1.5 (1.1-2.2); Alkaline Phosphatase 38 Units/L (38-126); Aspartate Amino Transferase 9 Units/L (5-34); BUN/Creatinine Ratio 9 (6-26); Blood Urea Nitrogen 7 mg/dL (7-20); Calcium 8.5 mg/dL (8.6-10.8); Carbon Dioxide 26 mEq/L (19-29); Chloride 111 mEq/L (98-109); Globulin 2.2 g/dL (2.4-3.5); Glucose 84 mg/dL (70-99); Osmolality,Calculated 287 (280-300); Potassium 3.5 mEq/L (3.5-4.5); Sodium 140 mEq/L (136-145); eGFR For African Americans > 60 (> 60); eGFR For Non-African Americans > 60 (> 60)
[2016-11-18 06:14] LABS: Albumin 3.3 g/dL (3.5-5.0); Total Protein 5.5 g/dL (6.0-8.3)
[2016-11-18] MEDS: Lactobacillus 1 EACH CAP.SPRINK PO SCH (08:14)
[2016-11-18] MEDS: Cholestyramine 4 GM POWD.PACK PO SCH (08:14)
[2016-11-18] MEDS: Nicotine 7 MG PATCH.TD24 TD SCH (08:14)
[2016-11-18] MEDS: *HR* Enoxaparin 40 MG/0.4 ML SYRINGE SQ SCH (08:14)
[2016-11-18] MEDS: ALPRAZolam 0.5 MG TABLET PO SCH (08:15)
[2016-11-18] MEDS: MetroNIDAZOLE 500 MG/100 ML 500 MG/100 ML BAG IVPB SCH ×3 (08:15→23:46)
[2016-11-18] MEDS: Vancomycin Oral Soln 250 MG/2.5 ML UDC PO SCH ×4 (09:39→20:09)
[2016-11-18] MEDS: Vortioxetine Hydrobromide [Trintellix] 10 MG PO SCH (09:53)
[2016-11-18] MEDS ORDERED: ALPRAZolam 0.5 MG TABLET PO PRN (14:17)
[2016-11-18] MEDS: ALPRAZolam 0.5 MG TABLET PO PRN ×2 (15:29→20:08)
--- NOTE | 2016-11-18 16:14 | Internal Med Progress Note ---
Date of Encounter: 11/18/16 Time of Encounter: 10:30 - Assessment and plan (1) C. difficile diarrhea Current Visit: Yes Status: Acute Assessment and plan: 31 yo Female admitted with C. difficile diarrhea, diagnosed at [facility] - No fever, WBC - 5.1, no neutrophil elevation or electrolyte dysfunctions or kidney injury - Patient complains of severe abdominal pain, and nausea - Continue metronidazole IV, PO Vancomycin 125 mg 4 times per day - Nausea control with Zofran and scopolamine patch - Continue current pain control regimen He continues to demand increased frequency and increased dose of IV Dilaudid and [place]. She has directed her anger toward all medical staff when she has been explained that she is on [place] every 4 hours by mouth and IV Dilaudid every 2 hours as needed. Continue to monitor closely (2) Abdominal pain Current Visit: Yes Status: Chronic Assessment and plan: Patient presents with abdominal pain in the setting of C. difficile colitis. Review of patient's records demonstrates that the patient does have positive ASCA and there was concern for IBD/Crohn's disease She states that she has a history of IBS-D Gastroenterology involved in the case, appreciate recommendations - recommend outpatient evaluation with colonoscopy Plan: - Continue treatment for C. difficile - Continue pain control Qualifiers: Abdominal location: left lower quadrant Qualified Code(s): R10.32 - Left lower quadrant pain (3) Depression, major, recurrent, moderate Current Visit: No Status: Acute Assessment and plan: Currently uncontrolled depression Psychiatry consult (4) Anxiety Current Visit: No Status: Acute Assessment and plan: Severe anxiety - emotionally labile Psychiatry consult - appreciate their recommendations Continue Xanax 3 times daily (5) Personality disorder Current Visit: No Status: Acute Assessment and plan: Known history of personality disorder Psychiatry consult (6) DVT prophylaxis Current Visit: Yes Status: Acute Assessment and plan: Continue Lovenox subcutaneous - Time Spent With Patient 25 - 35 minutes - Subjective Interval history: Examined this morning. Patient is awake and alert. Not in any distress. Denies chest pain or shortness of breath. Vomiting has improved. Complains of left lower quadrant pain. Rates it 8 out of 10. States it is almost constant. It improves the pain medication. No fever. Hemodynamically stable. Patient demands more IV Dilaudid and also wants [place]. Patient is emotionally labile. She does have a personality disorder and severe anxiety. She continues to direct her anger and frustration toward all medical staff. She wants something to calm her down. She is on Xanax 3 times daily. No other acute events or complaints. - Constitutional Vitals: Temp Pulse Resp BP Pulse Ox 98.4 F 59 16 114/73 97 11/18/16 12:13 11/18/16 12:13 11/18/16 12:13 11/18/16 12:13 11/18/16 12:13 General appearance: Present: A&O X 3, no acute distress, answers questions appropriately. Absent: pleasant Exam: Emotionally labile, anxiety - Head Head exam: Present: atraumatic - ENT ENT exam: Present: mucous membranes moist - Respiratory Respiratory exam: Present: CTAB. Absent: rales, rhonchi, wheezes, tachypnea - Cardiovascular Cardiovascular exam: Present: RRR, +S1, +S2 - GI/Abdominal GI/Abdominal exam: Present: soft, tenderness (Left lower quadrant and suprapubic tenderness and left flank tenderness). Absent: distended, firm, guarding - Extremities Exam Extremities exam: Present: radial pulses palpable and symmetrical. Absent: cyanotic, pedal edema - Neurological Exam Neurological exam: Present: alert, oriented X3, no focal deficits. Absent: facial droop, speech deficit Internal Medicine: Result - Labs CBC & Chem 7: 11/18/16 05:38 11/18/16 05:38 Labs: Short CBC 11/18/16 Range/Units 05:38 WBC 5.1 (4.3-11.1) K/mcL Hgb 10.7 L D (11.5-15.4) g/dL Hct 33.0 L (35.3-44.9) % Plt Count 203 (140-400) K/mcL Neutrophils # 1.9 (1.6-8.9) K/mcL BMP 11/18/16 05:38 Sodium 140 Potassium 3.5 Chloride 111 H Carbon Dioxide 26 BUN 7 Creatinine 0.75 Glucose 84 Calcium 8.5 L Liver Function 11/18/16 Range/Units 05:38 Total Bilirubin 1.0 D (0.2-1.2) mg/dL AST 9 (5-34) Units/L ALT 8 (0-55) Units/L Alkaline Phosphatase 38 (38-126) Units/L Albumin 3.3 L D (3.5-5.0) g/dL Consult Discharge Plan - Plan Additional Instructions: petra klonopin start xanax 0.5 mg tid Referrals: NONE,PCP [Primary Care Provider] -
--- NOTE | 2016-11-18 18:33 | Event Note ---
Date of Encounter: 11/18/16 Time of Encounter: 18:00 Patient with a history of IBS now with the C. difficile diarrhea. Complaining of excessive amount of pain on the left side of the abdomen on examination abdomen is soft nontender nonsurgical no guarding or rigidity. asking for pain medication to be increased specialty Dilaudid. Rec: We will get CT of the abdomen because of the last side of abdominal pain and patient history of pancreatitis in the past. We will defer the pain management to the primary team ( Dr. Freeman)
[2016-11-18] MEDS ORDERED: Nicotine 7 MG PATCH.TD24 TD ONE (21:18)
[2016-11-18] MEDS ORDERED: Scopolamine Patch 1.5 MG PATCH.TD72 TD ONE (21:19)
[2016-11-19] MEDS: Metoclopramide 10 MG/2 ML VIAL IVP SCH ×2 (05:34→11:27)
[2016-11-19] MEDS: *HR* HYDROmorphone (PF) 1 MG/ML SYRINGE IVP PRN ×4 (05:34→17:01)
[2016-11-19] MEDS: Pantoprazole 40 MG VIAL IVP SCH (05:34)
[2016-11-19] MEDS: *HR* Enoxaparin 40 MG/0.4 ML SYRINGE SQ SCH (05:34)
[2016-11-19] MEDS: 0.9 % Sodium Chloride 1,000 ML IVC SCH (05:36)
[2016-11-19 05:46] LABS: Basophils % 0.6 %; Eosinophils # 0.2 K/mcL (0.0-0.6); Eosinophils % 3.7 %; Hematocrit 34.6 % (35.3-44.9); Hemoglobin 11.3 g/dL (11.5-15.4); Immature Granulocytes % 0.2 % (0-4); Lymphocytes # 2.3 K/mcL (0.6-4.6); Lymphocytes % 42.6 %; Mean Corpuscular HGB Conc 32.7 g/dL (31.6-35.5); Mean Corpuscular Hemoglobin 30.8 pg (28.0-33.3); Mean Corpuscular Volume 94.3 fL (83.0-100.0); Mean Platelet Volume 10.4 fL (9.4-12.4); Monocytes # 0.4 K/mcL (0.0-1.3); Monocytes % 8.1 %; Neutrophils # 2.4 K/mcL (1.6-8.9); Platelet Count 209 K/mcL (140-400); Red Blood Count 3.67 M/mcL (3.82-4.97); Red Cell Distribution Width 13.1 % (11.5-14.5); Segmented Neutrophils % 44.8 %
[2016-11-19] MEDS: *HR* HYDROcodone/Acet 5/325 mg TABLET PO PRN ×2 (07:45→14:18)
[2016-11-19] MEDS: Cholestyramine 4 GM POWD.PACK PO SCH (07:46)
[2016-11-19] MEDS: MetroNIDAZOLE 500 MG/100 ML 500 MG/100 ML BAG IVPB SCH (07:46)
[2016-11-19] MEDS: Ondansetron 4 MG/2 ML VIAL IVP PRN ×3 (07:53→16:49)
[2016-11-19] MEDS: ALPRAZolam 0.5 MG TABLET PO PRN ×2 (08:08→12:25)
[2016-11-19 10:28] VITALS: BP 132/67
[2016-11-19] MEDS: Lactobacillus 1 EACH CAP.SPRINK PO SCH (11:25)
[2016-11-19] MEDS: Nicotine 7 MG PATCH.TD24 TD SCH (11:25)
[2016-11-19] MEDS: Vancomycin Oral Soln 250 MG/2.5 ML UDC PO SCH ×2 (11:42→14:14)
--- NOTE | 2016-11-19 13:09 | Discharge Summary ---
Date of Encounter: 11/19/16 Time of Encounter: 08:40 - Discharge Diagnosis (1) C. difficile diarrhea Priority: Primary Status: Acute Comments: 31 yo Female admitted with C. difficile diarrhea, diagnosed at [facility] - symptoms now improved - No fever, WBC - 5.4, no neutrophil elevation or electrolyte dysfunctions or kidney injury - Patient complains of severe abdominal pain, and nausea - Continue Metronidazole PO, PO Vancomycin 125 mg 4 times per day at home - Nausea control with Zofran - Continue oxycodone for pain as needed Patient continues to demand increased frequency and increased dose of IV Dilaudid and [place]. She has directed her anger toward all medical staff when she has been explained that she is on [place] every 4 hours by mouth and IV Dilaudid every 2 hours as needed. Discharge home today, advised to follow up with PCP and gastroenterology as outpatient (2) Abdominal pain Priority: Primary Status: Chronic Comments: Patient presents with abdominal pain in the setting of C. difficile colitis. Review of patient's records demonstrates that the patient does have positive ASCA and there was concern for IBD/Crohn's disease She states that she has a history of IBS-D MRI of abdomen - no evidence of acute intra-abdominal inflammatory process or fluid collection, colonic diverticulosis without evidence of acute inflammation Gastroenterology involved in the case - appreciate recommendations - recommend outpatient evaluation with colonoscopy Plan: - Continue treatment for C. difficile - Continue pain control - Return if symptoms worsen Qualifiers: Abdominal location: left lower quadrant Qualified Code(s): R10.32 - Left lower quadrant pain (3) Depression, major, recurrent, moderate Priority: Primary Status: Chronic Comments: Currently uncontrolled depression - continue home meds Follow up with psychiatry as outpatient (4) Anxiety Priority: Primary Status: Chronic Comments: Severe anxiety - emotionally labile Psychiatry consult - appreciate their recommendations Continue Xanax 3 times daily (5) Personality disorder Priority: Primary Status: Chronic Comments: Known history of personality disorder - continue home meds Follow-up with psychiatry as outpatient - Discharge Medications Prescriptions: HYDROcodone/Acet 5/325 mg [[place] 5-325 mg] 2 tab PO Q6HR PRN #10 tab PRN Reason: Pain ALPRAZolam [Xanax 0.5 MG Tablet] 0.5 mg PO TID PRN #10 tab PRN Reason: Anxiety Hyoscyamine SL [Levsin Sl] 0.125 mg SL Q4H PRN #20 PRN Reason: Cramping Lactobacillus [Culturelle] 2 each PO DAILY #7 metroNIDAZOLE [Flagyl] 500 mg PO TID 10 Days Ondansetron ODT [Zofran ODT] 4 - 8 mg PO Q4-6H PRN #14 PRN Reason: Nausea Vancomycin Oral Soln [Vancocin] 125 mg PO QID 10 Days Home Medications: SUMAtriptan succinate [Imitrex] 50 mg PO Q2H PRN MDD 100 mg 02/15/16 [History] Buspirone HCl [Buspar] 30 mg PO BID 11/16/16 [History] Doxepin HCl 100 mg PO HS 11/16/16 [History] HydrOXYzine Pamoate [Vistaril] 50 mg PO QID PRN 11/16/16 [History] Vortioxetine Hydrobromide [Trintellix] 10 mg PO DAILY 11/16/16 [History] ALPRAZolam [Xanax 0.5 MG Tablet] 0.5 mg PO TID PRN #10 tab 11/19/16 [Rx] HYDROcodone/Acet 5/325 mg [[place] 5-325 mg] 2 tab PO Q6HR PRN #10 tab 11/19/16 [ Rx] Hyoscyamine SL [Levsin Sl] 0.125 mg SL Q4H PRN #20 11/19/16 [Rx] Lactobacillus [Culturelle] 2 each PO DAILY #7 11/19/16 [Rx] Ondansetron ODT [Zofran ODT] 4 - 8 mg PO Q4-6H PRN #14 11/19/16 [Rx] Vancomycin Oral Soln [Vancocin] 125 mg PO QID 10 Days 11/19/16 [Rx] metroNIDAZOLE [Flagyl] 500 mg PO TID 10 Days 11/19/16 [Rx] Allergies/Adverse Reactions: 3 Allergy/AdvReac Type Severity Reaction Status Date / Time promethazine [From Phenergan] AdvReac Gastrointestinal Verified 10/29/15 12:22 Upset Procedures/tests Complete & Pending: Procedures Performed prior 72 hours Category Date Time Status MR abdomen wo/w con [MR] Routine MRI 11/18/16 18:22 Completed ECG 12 lead ECG [ECG] Routine Y 11/17/16 11:08 Completed Date of admission: 11/17/16 02:35 Primary care physician: PCP NONE Consults: 11/17/16 10:34 Consult to Psychiatry [CONS] Routine Consulting Provider: Sharda Stone Reason for Consult: Severe anxiety in the setting of acute illness Call Completed: Yes Anticipated date of discharge: 11/19/16 - Patient Status Disposition: Home, Self-Care Condition: Good Functional capacity at discharge: independent ambulation Overall status at discharge: patient is progressing back to baseline - Discharge Instructions Instructions: Mood Disorders (DC), Clostridium Difficile Infection (DC), Anemia (GEN), Anxiety (DC) Follow Up With: Shoshana Faulkner CNP [Advanced Practice Nurse] - Titus Choi DO [Resident] - 12/15/16 9:00 am (They will send new paitent packet in mail, in that packet there will be a health questionaire for you to fill out and bring with you. Bring all meds with you to your appointment and also take jinriksha driver lisence and insurance card.) NONE,PCP [Primary Care Provider] - José Miguel Ann MD [Partnered Physician] - 12/15/16 3:00 pm (2 weeks follow up ) Additional Instructions: dc klonopin start xanax 0.5 mg tid - Diet and Activity Activity: increase activity as tolerated Diet: advance to your usual diet Hospital course: Ms. Castillo is a 31 year old female with past medical history of fibromyalgia, migraines, anxiety, depression, borderline personality disorder and PTSD. Patient presented to ED with complaints of abdominal pain and diarrhea. Patient states she also has a history of IBS-D. she initially stated the symptoms have been going on for about 3 months. She presented to a hospital a few months ago with similar complaints and was apparently diagnosed with Giardia and received Flagyl at that time. She stated that her abdominal pain and diarrhea did not improve and was scheduled to see a postdoctoral research associate. A few days prior to admission she was at another facility and was found to have C. difficile and stool. She was given vancomycin by mouth and Flagyl. She could not afford the medications and decided to come to the ED for worsening abdominal pain and diarrhea. Had severe nausea and vomiting. Patient has been continued on IV Flagyl and also vancomycin by mouth for her C. difficile. Her diarrhea has now improved. Patient did complain of persistent left lower quadrant pain. Patient had been demanding IV Dilaudid and [place]. She wanted her frequency and dosage increased frequently. Patient has been emotionally labile. She has frequently director of her frustration and anger toward all medical staff. Psychiatry has evaluated the patient. She has been started on Xanax 3 times a day for severe anxiety. Patient has been advised to continue all her home medications for her depression and anxiety and borderline personality disorder. She has also been advised to follow-up with psychiatry as outpatient. Clonazepam has been replaced with Xanax. Gastroenterology is also evaluated the patient and recommended colonoscopy as outpatient to evaluate for IBD. Initial CT of the abdomen and pelvis revealed no acute intra- abdominal abnormality and no acute intrapelvic abnormality. In view of patient' s persistent abdominal pain which she rates a 9 out of 10, abdominal MRI was ordered. This did not show any evidence of acute intra-abdominal inflammatory process or fluid collection. Patient does have colonic diverticulosis without evidence of acute inflammation. Patient did not have any fever and no tachycardia. White count is within normal limits. Patient is being discharged on by mouth vancomycin and by mouth Flagyl. She will also need to be on Zofran for nausea. She is scheduled to follow-up with gastroenterology as outpatient. Patient and family have been explained in detail about her condition and plan of care. They understood and agreed. Patient is still unhappy that she is not receiving adequate pain medication. Patient is being discharged in a stable condition. - Time Spent with Patient Total time spent providing and/or coordinating discharge services: Less than 30 minutes - Constitutional Vitals: Temp Pulse Resp BP Pulse Ox 98.0 F 61 16 132/67 95 11/19/16 10:26 11/19/16 10:26 11/19/16 10:26 11/19/16 10:26 11/19/16 10:26 General appearance: Present: A&O X 3, no acute distress, answers questions appropriately. Absent: pleasant Exam: Emotionally labile, anxiety - Head Head exam: Present: atraumatic - Eye Eye exam: Present: EOMI - ENT ENT exam: Present: mucous membranes moist - Respiratory Respiratory exam: Present: CTAB. Absent: rales, rhonchi, wheezes, tachypnea - Cardiovascular Cardiovascular exam: Present: RRR, +S1, +S2 - GI/Abdominal GI/Abdominal exam: Present: soft, tenderness (Mild left lower quadrant tenderness). Absent: distended, firm, guarding - Extremities Exam Extremities exam: Present: radial pulses palpable and symmetrical. Absent: cyanotic, pedal edema - Neurological Exam Neurological exam: Present: alert, oriented X3, no focal deficits. Absent: facial droop, speech deficit
== END 2016-11-19 17:20 | disposition home or self-care (01) | DRG 248 ==
LOC: 3ANU 15:19 → EMEROO 15:19 → 3ANU 19:44
PROVIDERS: ADMIT Internal Medicine; ATTEND Internal Medicine